=== PATIENT | female | born 1930 | race Caucasian/White ===

== ENCOUNTER 2016-07-14 07:12 | Inpatient (IN) | payer MEDICARE ==
[~2016-07-14] VITALS: Ht 160 cm; Wt 103.1 kg
[2016-07-21] MEDS ORDERED: COLACE-DPS100 MG PO (14:04)
[2016-07-21] MEDS ORDERED: VITAMIN D31000 UNIT PO (14:04)
[2016-07-21] MEDS ORDERED: CARVEDILOL25 MG PO (14:04)
[2016-07-21] MEDS ORDERED: LEVOTHYROXINE150 MCG PO (14:04)
[2016-07-21] MEDS ORDERED: RENVELA800 MG PO (14:05)
[2016-07-21] MEDS ORDERED: PRAVACHOL20 MG PO (14:05)
[2016-07-21] MEDS ORDERED: ZANTAC DPS150 MG PO (14:05)
[2016-07-21] MEDS ORDERED: CLARITIN DPS10 MG PO (14:05)
[2016-07-21] MEDS ORDERED: COUMADIN6 MG PO (14:06)
[2016-07-21] MEDS ORDERED: TYLENOL EXTRA500 M1 PO (14:06)
[2016-07-21] MEDS ORDERED: VITAMIN E400 UNI2 PO (14:06)
--- NOTE | 2016-07-22 16:04 | CO ---
ADMIT: 07/14/2016 RM/LOC: 526 [facility] MR#: [id number] [address] [address] ARJUN ERNANDEZ [address] [place] [address] Consultation SEX: F AGE: 86 : 1930 DATE OF CONSULTATION: 07/14/2016 ATTENDING PHYSICIAN: Delmis Malcolm CONSULTING PHYSICIAN: Radha Marie MD REASON FOR CONSULTATION: Tunnel dialysis catheter infection and need for hemodialysis. HISTORY OF PRESENT ILLNESS: The patient is a pleasant 86-year-old female, who was transferred over here from [facility] in [place]. She was reportedly sent over here for a catheter exchange of her tunnel dialysis catheter that was reportedly malfunctioning. She was also being treated for an infection of her exit site of her TDC. She was noted to have a purulent discharge by the nurses here and was given 1 g of vancomycin down in short stay and subsequently had a tunnel dialysis catheter removed with the placement of a non tunneled temporary dialysis catheter. In speaking with the patient, it appears that she may have had an acute kidney injury. She was recently started on dialysis at [facility] about 5 weeks ago. She has been dialyzing on a Monday, Monday, Monday schedule and her last dialysis was this past Monday. She was taking doxycycline as an outpatient for this TDC infection. I am unclear if she has had any blood cultures drawn. She denies any fevers, chills, or rigors. She has been feeling fairly well. Appetite and energy levels have been okay. She denies any dyspnea or cardiac complaints now. She makes very little urine. She has lower extremity edema that has been improving. REVIEW OF SYSTEMS: A complete review of systems is negative in detail except as mentioned in history of present illness above. PAST MEDICAL HISTORY: 1. Hypertension. 2. Atrial fibrillation. 3. Acute kidney injury/chronic kidney disease on hemodialysis on a Monday, Monday, Monday schedule. 4. Hypothyroidism. 5. Dyslipidemia. 6. Hyperphosphatemia. 7. Anemia in chronic kidney disease. ALLERGIES: BACTRIM, AMIODARONE, PENICILLIN, RABEPRAZOLE, CELEBREX. MEDICATIONS: Reviewed and addressed in the chart. SOCIAL HISTORY: She lives in [place] all by herself. Lifelong nonsmoker. No alcohol or recreational drug use. FAMILY HISTORY: No family history of chronic kidney disease or renal ADMIT: 07/14/2016 RM/LOC: 526 [facility] MR#: [id number] [address] [address] ARJUN ERNANDEZ [address] [place] [address] Consultation SEX: F AGE: 86 : 1930 replacement therapy. PHYSICAL EXAMINATION: VITAL SIGNS: Temperature 97.2 Fahrenheit, pulse 104, blood pressure 125/56, and saturating 98% room on room air. GENERAL: She is comfortable. HEENT: Head is nontraumatic and normocephalic. Extraocular movements are intact. No conjunctival pallor. Oral mucosa is moist. NECK: Supple without any JVD. She has a non tunneled temporary dialysis catheter. CHEST: Clear to auscultation. CVS: Regular rhythm. S1 and S2 heard. No rubs, murmurs, or gallops. ABDOMEN: Soft, nontender. EXTREMITIES: 1+ edema. SKIN: No rash or nodules. NEUROLOGIC: Alert, awake, oriented x3. Able to move all extremities. PSYCHIATRIC: Affect and memory within normal limits. MUSCULOSKELETAL: Major joints within normal limits. Range of motion within normal limits. LABORATORY DATA: Reviewed. BMP with sodium 141, potassium 4.0, creatinine is 4.8, and albumin 2.7. Hemoglobin 11.6, white count is 14.9. ASSESSMENT/PLAN: 1. Acute kidney injury on chronic kidney disease on hemodialysis - there is no emergent need for renal replacement therapy. I will call for her records from her dialysis unit in order to obtain her history of her kidney disease. I will plan to dialyze her in the morning as well. 2. Hypertension - her blood pressure is actually on the lower side. I will decrease her Coreg to 12.5 mg p.o. b.i.d. ADMIT: 07/14/2016 RM/LOC: 526 [facility] MR#: [id number] 2620 [facility] [address] ARJUN ERNANDEZ [address] [place] [address] Consultation SEX: F AGE: 86 : 1930 3. Tunnel dialysis catheter infection - she is status post vancomycin. I will follow her blood cultures drawn here. I will call for any blood cultures that may have been drawn at the dialysis unit. I will give her vancomycin and cefepime pending cultures. She will receive cefepime tonight and then and another dose of 3 g of cefepime after dialysis tomorrow. 4. Anemia in chronic kidney disease - her hemoglobin is acceptable. 5. Renal osteodystrophy - continue her phosphate binders. Check serum phosphorus level in the morning. Thank you for this consultation and allowing me the opportunity to participate in this patient's care. Please do not hesitate to contact with any questions. Radha Marie MD/ seamus JOB #: [id number] CC: Delmis Malcolm, Attending Physician Cookie Kay, Family Physician
--- NOTE | 2016-07-28 08:26 | HP ---
ADMIT: 07/14/2016 RM/LOC: 526 [facility] MR#: [id number] 2620 [facility] [address] [place], [place] [address] ARJUN ERNANDEZ [address] [place] [address] History and Physical SEX: F AGE: 86 : 1930 DATE OF SERVICE: CHIEF COMPLAINT: Infected dialysis catheter. HISTORY OF PRESENT ILLNESS: This is an 86-year-old lady who lives in [place], [place]. Her primary doctor is Dr. Brooks in [place], [place]. In May, she was diagnosed with renal failure and referred to door worker in [place] at [facility]. She started dialysis there, had a tunneled dialysis catheter placed. While she was there, she saw her event planning intern. She has known atrial fibrillation, has a pacemaker. Also while she was there, she had elevated white count and underwent a bone marrow biopsy and was told she has chronic myelogenous leukemia and no treatment was recommended. In any case, she has been receiving outpatient dialysis since mid May through Dr. Johnston in [place]. She had some troubles with the dialysis catheter working, and so the plan was to come to [place] to have that changed out by our Interventional Radiologist today. However, when she got here this morning, Short-Stay noted that there was purulent drainage from the catheter. Therefore, procedure was put on hold and I was asked to admit her through [facility] coverage for this apparent infection. The patient herself said she feels fine and did not realize it was infected. She said she has not seen drainage at home and it has not been painful. Denied any redness of the skin. On admission, she was afebrile. She has been up and around and feeling good at home. In any case, she is admitted to start antibiotic therapy and have her tunneled catheter pulled and replaced with a temporary catheter so she can continue dialysis until a new permanent catheter can be placed. The patient has chronic medical illnesses including the hypertension, atrial fibrillation, hypothyroidism, hyperlipidemia, anemia of chronic disease. She has the end-stage kidney failure which appears to be acute on chronic kidney disease by the impression I get from the patient. We are awaiting her records from [place]. She also has a new diagnosis of chronic myelogenous leukemia which is being managed conservatively with no treatment. PAST MEDICAL HISTORY: Gastroesophageal reflux and hiatal hernia. PAST SURGICAL HISTORY: Cholecystectomy in 2011, inguinal hernia repair in 2013, and total knee replacement in 2008. MEDICATIONS: 1. Carvedilol 12.5 mg b.i.d. 2. Colace 100 mg daily. 3. Cholecalciferol 1000 units daily. 4. Levothyroxine 150 mcg daily. 5. Loratadine 10 mg at bedtime as needed. 6. Pravastatin 40 mg at bedtime. 7. Ranitidine 150 mg t.i.d. 8. Renvela 800 mg t.i.d. 9. Tylenol which she takes p.r.n. 10.Vitamin E 400 units daily. ADMIT: 07/14/2016 RM/LOC: 526 [facility] MR#: [id number] [facility] [address] [address] ARJUN ERNANDEZ [address] [place] [address] History and Physical SEX: F AGE: 86 : 1930 11.Warfarin 6 mg daily. ALLERGIES: INCLUDE BACTRIM, PENICILLIN, AMIODARONE, CELEBREX, AND RABEPRAZOLE. SOCIAL HISTORY: The patient is independent, cares for herself in her own home in [place], [place]. She drives to appointments on her own. Her next of kin is a friend in [place]. She is retired medical unit secretary. She is a lifelong nonsmoker and denies any alcohol use. FAMILY HISTORY: Denies any kidney disease history. Her mother had a stroke and father had heart disease. REVIEW OF SYSTEMS: CONSTITUTIONAL: Benign. She said she really has been feeling fine. Denies fevers or chills. ENT: Benign. She denies dry mouth, trouble swallowing. CARDIOPULMONARY: Benign as well. GASTROINTESTINAL: She denies any nausea. She said she has chronic constipation and takes Colace for that. She also has an upper epigastric irritation and heartburn and said her Zantac helps that. GENITOURINARY: She does still make urine but says she can tell it is definitely less than it used to be within the last few months. MUSCULOSKELETAL: She has some aches and pains and says she is able to get up and around on her own without trouble. PHYSICAL EXAMINATION: VITAL SIGNS: Blood pressure was fine, ranging 93/62 up to 125/56 since she has been admitted. She is afebrile since admission this morning. Oxygenation in the low to mid 90s on room air. She is a very pleasant lady, alert, oriented, very good historian. ENT: Benign. She has no facial droop. Mucous membranes are moist. No scleral icterus or jaundice is noted. NECK: Supple with no jugular venous distention. LUNGS: Sounded clear. HEART: A little bit tachy in the 90s and with occasional irregular beats. I do not feel any heave or hear any murmur. ABDOMEN: Belly is soft, nontender. No hepatosplenomegaly is appreciated. Bowel sounds are normal. EXTREMITIES: Lower extremities with 1+ edema in the ankles and pretibial areas in the lower legs. LABORATORY AND X-RAY DATA: Her electrolytes are normal including potassium of 4.0, BUN is 54, creatinine 4.8, glucose 117. Liver enzymes looked fine. Her albumin is a little bit low at 2.7. INR is 1.25 and she had her Coumadin on hold for the last 2 days in anticipation of this catheter change. White count is 14.9, hemoglobin 11.6, hematocrit 37.5, platelet count 110. Procalcitonin is 0.31. Lactic acid is 1.8. ASSESSMENT: ADMIT: 07/14/2016 RM/LOC: 526 [facility] MR#: [id number] 2620 [facility] [address] [place], [place] [address] ARJUN ERNANDEZ [address] [place] [address] History and Physical SEX: F AGE: 86 : 1930 1. Infection of tunneled venous catheter. 2. End-stage renal disease, requiring dialysis. 3. Chronic hypertension. 4. Chronic atrial fibrillation with chronic anticoagulation. 5. Hypothyroidism. 6. Gastroesophageal reflux, controlled by medications. PLAN: We will admit and blood cultures have been drawn. I spoke with Dr. Marie who graciously consulted and ordered her antibiotic treatment. He ordered cefepime and made dosing recommendations around her dialysis. We will use heparin subcutaneous for DVT prophylaxis and hold her Coumadin in anticipation of replacement tunneled venous catheter early next week. Today is and we will keep her on antibiotics through the weekend, monitor the blood cultures, and if they are negative and she is doing well, then she will have her permanent catheter replaced. In the meantime, she did already have a temporary venous catheter placed by Interventional Radiology here this morning. Delmis Malcolm MD/ seamus JOB #: [id number] CC: Delmis Malcolm, Attending Physician Cookie Kay, Family Physician
--- NOTE | 2016-08-01 14:03 | CO ---
ADMIT: 07/14/2016 RM/LOC: 526 [facility] MR#: [id number] [address] [facility] [address] [place], [place] [address] ZARINA ERNANDEZ [address] [place] [address] Consultation SEX: F AGE: 86 : 1930 DATE OF CONSULTATION: 07/18/2016 ATTENDING PHYSICIAN: Delmis Malcolm CONSULTING PHYSICIAN: Newton Holden MD REASON FOR CONSULT: Atrial fibrillation with rapid ventricular response. HISTORY OF PRESENT ILLNESS: Zarina is a very nice 86-year-old lady with a long history of atrial fibrillation dating back years. Apparently, they have been pursuing a rate control strategy, and she also has a pacemaker. She denies a history of cardiomyopathy or coronary artery disease. Since May of last year, she has been on dialysis. It sounds like she was ill at that time and started on dialysis in May while she is in [place] at [facility]. She also had an elevated white count and a bone marrow biopsy revealed chronic myelogenous leukemia, but no treatment was recommended. She went to [place] for her dialysis. They were having trouble with the dialysis catheter functioning properly. She came to [place] to have the interventional radiologist change out her catheter on July 14. When she arrived, there was suspicion for infection with purulent drainage from the catheter. The procedure was delayed and she was admitted. She denied fevers. She denies palpitations. She denies any anginal-type chest pain. No presyncope or syncope. She says she is a little more confused today than she has been over the past several days, but apparently, her cultures have been negative and she is on antibiotics. They did decrease her home dose of Coreg when she was admitted because of some relative hypotension, and apparently, they have had a little difficulty with hypotension during dialysis since she has been in the hospital. PAST MEDICAL HISTORY: ILLNESSES: Include history of hypothyroidism, anemia of chronic disease with more recent diagnosis of CML, hypertension, atrial fibrillation, she is status post pacemaker implantation, end-stage renal disease, gastroesophageal reflux disease, and hiatal hernia. PAST SURGICAL HISTORY: Includes an inguinal hernia repair, total knee replacement, and cholecystectomy. ALLERGIES: AMIODARONE, CELEBREX, PENICILLIN, AND BACTRIM. HOME MEDICATIONS: 1. Coumadin 6 mg daily. 2. Vitamin E daily. 3. Tylenol p.r.n. 4. Renvela 800 t.i.d. 5. Zantac 150 t.i.d. 6. Pravastatin 40 at bedtime. ADMIT: 07/14/2016 RM/LOC: 526 [facility] MR#: [id number] [address] [address] ZARINA ERNANDEZ [address] [place] [address] Consultation SEX: F AGE: 86 : 1930 7. Loratadine 10 mg as needed. 8. Levothyroxine 150 mcg daily. 9. Colace 100 daily. 10.Carvedilol 25 b.i.d. FAMILY HISTORY: She has noted her father had an OH in his 70s, and her mother had an OH in her 80s. She has no significant illnesses in her sibling. She denies significant family history of diabetes or cancer. SOCIAL HISTORY: She lives in [place], [place]. She has been since 1997. She has 2 adopted son. She has never smoked, does not drink alcohol, and used to work in daycare. REVIEW OF SYSTEMS: As per the HPI. Otherwise, a full 12-point review of systems was reviewed and noncontributory. PHYSICAL EXAMINATION: VITAL SIGNS: Her blood pressure is currently 108/66, her pulse is 110, respirations 14, she is afebrile, and O2 sats are 93% on room air. GENERAL: She does not appear in any acute distress. She actually appears a little younger than her stated age. It does seem to me that she has some mild confusion and slow to answer questions. EYES: Sclerae clear. No xanthelasmas. ENT: Oral mucosa is pink and moist. No jugular venous distention or carotid bruits. HEART: Irregularly irregular. Mildly tachycardic. Normal S1, S2. No murmurs, rubs or gallops. CHEST: Respirations are even and unlabored. Lungs are clear to auscultation. ABDOMEN: Obese, soft and nontender. EXTREMITIES: Peripheral pulses palpable. No clubbing, cyanosis or edema. MUSCULOSKELETAL: Gait is normal. PSYCHIATRIC: She has difficulty answering some simple questions, but she is alert and oriented, in no acute distress. LABORATORY DATA: Sodium is 137, potassium 4.8, BUN 65, glucose 96, creatinine is 6.1. AST and ALT were normal. Magnesium is 2.2. Her INR is now 1.25. White count is 19.3 with a hemoglobin of 10.0, and platelet count of 68,000. Blood cultures obtained on are negative. IMPRESSION: 1. Persistent or permanent atrial fibrillation with episodes of rapid ventricular response. 2. Chronic myelogenous leukemia. 3. Infected dialysis catheter. 4. End-stage renal disease, on hemodialysis. 5. History of hypertension. ADMIT: 07/14/2016 RM/LOC: 526 [facility] MR#: [id number] [address] [place] [id number] ZARINA ERNANDEZ [address] [place] [address] Consultation SEX: F AGE: 86 : 1930 RECOMMENDATIONS: Her Coreg was decreased on admission because of some relative hypotension. Apparently, the soft sugar operator head has had some difficulty with hypotension at dialysis. However, the Coreg is not new, and I think we need to increase the dose back to 25 mg b.i.d. If there is active infection, this may be driving her heart rate. If we continue to run into trouble with her heart rate and low blood pressure, we could change to a less vasodilating beta-rajesh such as metoprolol. The treatment strategy remains rate controlled. I know they are planning on resuming her anticoagulation after adequate dialysis access is obtained. Digoxin is not an option for her skilled nursing given her end-stage renal disease, and apparently, she has an allergy to amiodarone. Newton Holden MD/ seamus JOB #: [id number] CC: Delmsi Malcolm, Attending Physician Cookie Kay, Family Physician
--- NOTE | 2016-08-10 08:18 | DS ---
ADMIT: 07/14/2016 RM/LOC: 526 [facility] MR#: [id number] [address] [address] ARJUN ERNANDEZ [address] [place] [address] General Discharge Summary SEX: F AGE: 86 : 1930 ADMISSION DATE: 07/14/2016 DISCHARGE DATE: 07/20/2016 FINAL DIAGNOSES: 1. Tunneled dialysis catheter infection. 2. End-stage kidney failure. 3. Chronic atrial fibrillation on rate control. 4. Hypertension, treated. 5. Chronic myelogenous leukemia with secondary elevated white count. HOSPITAL COURSE: The patient was admitted as a transfer from out of town to our [facility] call service. She has a doctor in [place], [place] and when she went in for dialysis was found to have purulent drainage from her tunneled dialysis catheter, so was admitted to the hospital. She initially was started on IV antibiotic and cefepime. Dr. Marie was consulted and gave the recommendation for dosing. She had a temporary dialysis catheter placed by Interventional Radiology and the infected tunneled venous catheter was removed. Dr. Marie followed and ordered her dialysis during the hospital stay. Her chronic atrial fibrillation, hypertension, hypothyroidism were all stable. Over the course of her stay, we did use heparin for VTE prophylaxis while her Coumadin was on hold. Dr. Marie did also dose vancomycin after dialysis episodes. The patient's blood cultures remained negative. On 07/18, she had some rapid ventricular rate with heart rate up to 150s. Dr. Newton Holden was consulted and recommended increasing Coreg to 25 mg twice daily. She remained stable after that. On 07/20, she had new tunneled dialysis catheter placed. We had 5 days of negative blood cultures by that point and she was otherwise very stable. Following her dialysis after the new catheter was placed, on the , she was dismissed home. She will follow up with her own physician in [place] and follow up with her own band bias machine operator as well. She sees that band bias machine operator on 07/22/[address] Newton Holden's notes with her dismissal paperwork. I do note she has chronic myelogenous leukemia and her white count was elevated throughout the hospital stay. She had negative blood cultures. White count is not a reliable indicator of sepsis or infection in this patient. She also has chronic anemia due to her kidney failure and leukemia. Finally, her platelet count is chronically low as well. On dismissal, she did not require any further antibiotics. She will follow up at her own dialysis unit within 48 hours, and the catheter was cleared for use. On dismissal, medicines are: 1. Coreg 25 mg b.i.d. 2. Ranitidine 150 mg t.i.d. ADMIT: 07/14/2016 RM/LOC: 526 [facility] MR#: [id number] [address] [place] [id number] ARJUN ERNANDEZ [address] [place] [address] General Discharge Summary SEX: F AGE: 86 : 1930 3. Pravachol 40 mg at bedtime. 4. Renagel 800 mg t.i.d. 5. Synthroid 0.15 mg daily. 6. Vitamin D 1000 units daily. 7. Vitamin E 400 units daily. 8. Claritin 10 mg daily as needed. She will resume her warfarin at 6 mg daily and have followup PT/INR CBC with her own doctor in the next 5-7 days. She wears CPAP for obstructive sleep apnea and she will continue that as well. No vaccines were given during this hospital stay. Delmis Malcolm MD/ seamus JOB #: [id number] CC: Delmis Malcolm MD, Attending Physician Cookie Kay APRN, CHIEF ACCOUNTANT, Family Physician Hernando Mcdonald MD
== END 2016-07-20 18:45 | disposition home or self-care (01) | DRG 314 ==
LOC: RAD.S 07:12 → EDSTATUS 09:30 → RAD.S 09:30 → 5MS 13:50 → RAD.S 07-19 09:00 → 5MS 07-20 18:45
PROVIDERS: ADMIT Family Medicine
PROC: 02PY33Z Removal of Infusion Device from Great Vessel, Percutaneous Approach (ICD-10-PCS; principal; 2016-07-14)
PROC: 02H633Z Insertion of Infusion Device into Right Atrium, Percutaneous Approach (ICD-10-PCS; principal; 2016-07-14)
PROC: B513ZZA Fluoroscopy of Right Jugular Veins, Guidance (ICD-10-PCS; principal; 2016-07-14)
PROC: 0JPT0XZ Removal of Tunneled Vascular Access Device from Trunk Subcutaneous Tissue and Fascia, Open Approach (ICD-10-PCS; principal; 2016-07-14)
PROC: 5A1D60Z (ICD-10-PCS; 2016-07-15)
PROC: 02PY33Z Removal of Infusion Device from Great Vessel, Percutaneous Approach (ICD-10-PCS; 2016-07-20)
PROC: 02HV33Z Insertion of Infusion Device into Superior Vena Cava, Percutaneous Approach (ICD-10-PCS; 2016-07-20)
PROC: 0JH63XZ Insertion of Tunneled Vascular Access Device into Chest Subcutaneous Tissue and Fascia, Percutaneous Approach (ICD-10-PCS; 2016-07-20)
DX: T82.7XXA Infection and inflammatory reaction due to other cardiac and vascular devices, implants and grafts, initial encounter (principal); N18.6 End stage renal disease; C92.10 Chronic myeloid leukemia, BCR/ABL-positive, not having achieved remission; I12.0 Hypertensive chronic kidney disease with stage 5 chronic kidney disease or end stage renal disease; I48.2 Chronic atrial fibrillation; E03.9 Hypothyroidism, unspecified; K44.9 Diaphragmatic hernia without obstruction or gangrene; K21.9 Gastro-esophageal reflux disease without esophagitis; E78.5 Hyperlipidemia, unspecified; N25.0 Renal osteodystrophy; G47.30 Sleep apnea, unspecified; D63.1 Anemia in chronic kidney disease; Z95.0 Presence of cardiac pacemaker; Z96.659 Presence of unspecified artificial knee joint; Z79.01 Long term (current) use of anticoagulants; Z82.49 Family history of ischemic heart disease and other diseases of the circulatory system